=== PATIENT | female | born 1975 | race Two or more races ===

== ENCOUNTER 2016-03-19 12:10 | Day surgery (SDC) | payer OTHER ==
[2016-03-18 09:39] VITALS: BMI 26.5
[2016-03-19] MEDS ORDERED: DEXAMETHASONE SOD PHOSPHATE/PF 10 MG/ML SDV ONE (12:41)
[2016-03-19] MEDS ORDERED: ROPIVACAINE HCL 0.5% 30ML VIAL ONE (12:41)
[2016-03-19] MEDS ORDERED: MIDAZOLAM HCL 2 MG/2 ML SINGLE DOSE VIAL ONE (12:45)
[2016-03-19] MEDS ORDERED: LIDOCAINE 1% P/F 10 MG/ML VIAL ONE (12:46)
[2016-03-19] MEDS ORDERED: PROPOFOL 20 ML ONE ×3 (13:39)
[2016-03-19] MEDS ORDERED: ONDANSETRON 4 MG/2 ML VIAL IVPUSH PRN (14:39)
[2016-03-19] MEDS ORDERED: oxyCODONE HCL 5 MG TABLET PO PRN (14:40)
[2016-03-19] MEDS ORDERED: PROMETHAZINE HCL 25 MG/1 ML VIAL IVPUSH PRN (14:40)
[2016-03-19] MEDS ORDERED: LACTATED RINGERS SOLUTION 1,000 ML IV SCH (14:45)
[2016-03-19 16:30] VITALS: TEMP 98.2
[2016-03-19 17:12] VITALS: BP 106/59; PULSE 81
--- NOTE | 2016-03-23 13:15 | OP ---
DATE OF OPERATION: 03/19/2016 PREOPERATIVE DIAGNOSES: 1. Left comminuted intraarticular displaced distal radius fracture. 2. Possible scapholunate ligament injury. POSTOPERATIVE DIAGNOSIS: Left comminuted intraarticular displaced distal radius fracture. OPERATIVE PROCEDURES: 1. Open reduction and internal fixation the left comminuted intraarticular displaced distal radius fracture with internal fixation of 3 or more fragments. 2. Left brachioradialis tenotomy. SURGEON: Hunter Amaral MD ANESTHESIA: Regional. COMPLICATIONS: None. ESTIMATED BLOOD LOSS: Minimal. RECREATION ASSISTANT: TRE Lynn INDICATIONS FOR PROCEDURE: The patient is a 40-year-old female with the above finding, indicated for operative treatment. Risks, benefits, alternatives were discussed with patient at length. Proper informed consent was obtained. PROCEDURE: After proper identification of patient and correct operative site, patient was brought to the operating room, placed supine on the operating table, all prominences well padded. Sedation was given by the anesthesiologist. Regional anesthesia was given. Intravenous antibiotics were given. Left upper extremity was prepped and draped in the usual sterile fashion. A well-padded tourniquet was placed over the sterile prep. Time-out procedure was performed. Esmarch bandage to exsanguinate left upper extremity. Tourniquet was inflated to 250 mmHg. A longitudinal incision was made over the volar aspect of the wrist over flexor carpi radialis tendon. Incision was taken sharply through skin with blunt and sharp dissection through subcutaneous tissues. Flexor carpi radialis tendon along with the contents of the carpal canal were bluntly and gently retracted ulnarly for the remainder of the procedure. The pronator quadratus was divided longitudinally off of the distal radius. The fracture was identified and found to be highly comminuted and displaced. Radial styloid had an independent fragment and, in order to mobilize this fragment, brachioradialis tenotomy was necessary and this was performed in a subperiosteal fashion, thus releasing the radial styloid fragment. Care was taken to protect the 1st dorsal compartment tendons. At this point the fracture fragments were reduced into anatomic position and held with an Arthrex distal radius plate with nonlocking screws proximally and locking screws distally. This provided secure stable fixation of the fracture with satisfactory reduction and proper placement and sizing of all hardware, confirmed radiographically in multiple planes, as well as digitally and palpably. At this point the distal radioulnar joint was stressed and found to be stable. The scapholunate interval was then stressed using Galloway scaphoid shift test and was found to be stable. At this point live fluoroscopy and dynamic stress examination of the scapholunate interval was performed in both AP and lateral planes and the scaphoid was found to have normal kinematics consistent with intact scapholunate ligament. The only indication of the scapholunate ligament injury was the mild widening of the scapholunate interval, however, this was present bilaterally in office x-rays; therefore, it was determined at this point that the scapholunate ligament did not warrant further treatment. The wound was irrigated with copious amounts of normal saline and repaired in layers including the pronator quadratus with 3-0 Vicryl, 4-0 Vicryl, and 4-0 Monocryl sutures. Steri-Strips, sterile dressings and a volar wrist splint were placed. The patient was reversed from anesthesia and brought to the recovery room in stable condition. She tolerated the procedure well. Checo Bain, the scheduling assistant, was integral throughout this procedure, and this procedure would not have been possible to be performed safely without a skilled operative scheduling assistant. HUNTER AMARAL M.D. [id number]
== END 2016-03-19 17:25 | disposition home or self-care (01) ==
LOC: FASU 12:10
PROVIDERS: ATTEND Orthopaedic Surgery Hand Surgery
PROC: 0LN60ZZ Release Left Lower Arm and Wrist Tendon, Open Approach (ICD-10-PCS; 2016-03-19)
PROC: 0PSJ04Z Reposition Left Radius with Internal Fixation Device, Open Approach (ICD-10-PCS; principal; 2016-03-19 13:46)
DX: S52.502A Unspecified fracture of the lower end of left radius, initial encounter for closed fracture (principal); X58.XXXA Exposure to other specified factors, initial encounter; Y93.9 Activity, unspecified; Y92.9 Unspecified place or not applicable
CPT/HCPCS: 73110-TC-LT; 84703; 94760